=== PATIENT | female | born 1965 | race Caucasian/White ===

== ENCOUNTER → 2017-09-17 | Outpatient (CLI) | payer OTHER ==
[~2017-09-17] VITALS: Ht 170.2 cm; Wt 61.2 kg
[~2017-09-17] MED LIST: BIOTIN5000 MC1 PO; IBU800 MG PO; MELATONIN10 M2 PO; PROBIOTIC1 EAC1 PO; PROTONIX40 M1 PO; TOPROL XL25 MG PO; UNICOMPLEX M TA1 TA1 PO; VALACYCLOVIR1000 MG PO; VITAMIN D32000 UNI1 PO; primrose oil PO
--- NOTE | ~2017-09-17 | HPC ---
[facility] [place] [place] [address] PAIN MANAGEMENT CONSULTATION Name: CHELY PEREA JULY Room #: REG RAMONITA Jamila.#: [id number] Admission: 09/17/17 Attend Phys: Cristian Orozco MD Discharge: Date of : 61 Report #: [id number] THIS REPORT FOR: //name// CC: Dr. Sergio Orozco DATE OF SERVICE: 09/17/2017 CHIEF COMPLAINT: Low back pain and right hip pain. 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 She has been dealing with back pain ever since 2002 when she underwent laminectomy. She was treated initially with some epidural injections at a clinic in [place] and then, we performed some facet treatments for axial back pain including radiofrequency in 2007. Nothing provided lasting relief. She has continued to work, but is markedly limited in flexion. The pain is severe with standing and weightbearing and she has difficulty with sleep at night. Because of pain in the back and pain in the right hip, which has been recently treated with arthroscopic surgery for labral tears, she tosses and turns all night long getting if she is marci 2 hours of complete sleep. This has left her tired and has affected her energy level and mood. Because of the ongoing persistent pain, on 08/09/2017, she underwent another MRI, which shows that she has facet degenerative changes across the lumbar spine and there is marked disk space narrowing at L5-S1 where endplate osteophytes are noted. There is a broad-based disc osteophyte formation 0.4-0.5 cm posterior to L5-S1 and there is mild narrowing in the lateral recess bilaterally. There is no nerve root impingement, however. There is bilateral foraminal and extraforaminal endplate osteophyte formation resulting in narrowing of the anterior inferior aspect of the exiting bilateral neural foramina. Thecal sac is 0.9 cm. MEDICATIONS: Ibuprofen 800 mg 1-2 times daily, melatonin for sleep, probiotics, biotin, vitamin D3, Benedict oil, valacyclovir, Protonix, metoprolol, and she has tried CBD oil. ALLERGIES: COMPAZINE. PAST MEDICAL HISTORY: Remarkable for high blood pressure, stomach problems, emotional problems and joint disease with arthritis involving the right hip. PAST SURGICAL HISTORY: Laminectomy in 2002, cataract removal in 2016, hip arthroscopic and labral tear in 2013. She had an abdominal hernia repair in 2003 and partial hysterectomy in [address]. [address] [address] PAIN MANAGEMENT CONSULTATION Name: CHELY PEREA JULY Room #: REG [facility].#: [id number] Admission: 09/17/17 Attend Phys: Cristian Orozco MD Discharge: Date of : 61 Report #: [id number] SOCIAL HISTORY: She is . Her children have just moved out of the house recently within the last couple of years. She is currently on medical leave since May because of pain. She denies use of tobacco or alcohol. She does not get out too much. REVIEW OF SYSTEMS: Positive for headaches, fatigue, weakness, blurred vision, palpitations, constipation, abdominal pain, insomnia, and she says that she is having some memory loss in part due to her poor sleep. PHYSICAL EXAMINATION: Attractive slender 52-year-old. She moves independently from sitting to standing position without too much difficulty. Examination of the spine reveals normal alignment with a small scar. She has tenderness across the lumbosacral segment. She has pain with forward flexion at the waist at about 30 degrees. Back extension is performed without much difficulty. She has tenderness in the right hip. Limited range of motion in internal and external rotation. There is some tenderness along the lateral aspect of the hip as well. Straight leg raising is positive for pain in the back with some pain also in the hip. IMPRESSION: Low back pain related to degenerative disk and chronic changes at the L5-S1 segment. Some possible radicular pain in the right hip, although much of this may be mechanical and related to her recent labral surgery. She is here today to discuss options and I went through medications including risks and benefits of nonsteroidal anti-inflammatory drugs, antidepressants and anti-seizure drugs such as gabapentin. We spent some time today discussing opioids and ____ treatment of chronic pain. She has not had pain for 10 years and although she is reluctant to start or use opioids, there may be a consideration down the line. We talked about spinal cord stimulation as being very helpful therapy for many patients, particularly those with leg pain related to nerve impingement. Unfortunately, the majority of her pain is mechanical under the axial spine. I would not recommend any intrathecal medication infusions if she has not had a trial of oral medication. Surgery might be an option. Stabilization of that one single segment might provide substantial relief, but she was reluctant to pursue that course as well. Use of a brace to provide comfort at various times of the day is recommended. I have suggested an Hines brace. Having tried several, I found this brace is of high quality with good durability and provides excellent lumbar support. We will place an order for this. She can use it at home and possibly out. I did have a sample of the Hines brace that she could trial in the clinic, which she wore with great comfort. Followup visit is scheduled for possible epidural injection in a month or two if [facility] [address] [place] [address] PAIN MANAGEMENT CONSULTATION Name: BRITCHELY JULY Room #: MAY Cervantes#: [id number] Admission: 09/17/17 Attend Phys: Cristian Orozco MD Discharge: Date of : 61 Report #: [id number] she is not seeing some relief from her brace. She will continue to remain active. By: [id number] Cristian Orozco MD /nt
[2017-09-17 13:46] VITALS: BP 129/78
== END ==
LOC: PAIN 06:26
DX: M51.26 Other intervertebral disc displacement, lumbar region (principal); M25.551 Pain in right hip; G89.29 Other chronic pain